=== PATIENT | male | born 1960 | race Caucasian/White ===

== ENCOUNTER 2016-10-01 00:47 | Emergency (ER) | payer OTHER ==
[~2016-10-01] VITALS: Ht 175.3 cm; Wt 79.0 kg
[2016-10-01 00:55] VITALS: BP 142/97; PULSE 79; RESP 20; O2SAT 96
--- NOTE | 2016-10-01 01:04 | ED.REPORT ---
HPI-General Illness Date of Service Oct 01, 2016 ED Provider: Medardo Huntley MD A 56 year old male with a history of hemorrhoids presents to the ED complaining of hemorrhoids. The pt reports bleeding external hemorrhoids that are causing a significant amount of pain. He has been using ointment treatments with some relief. Nursing Notes Stated Complaint: HEMORRHOIDS Chief Complaint: General Complaint Nursing Notes Reviewed: Yes Allergies: Coded Allergies: Penicillins (Verified Allergy, Severe, Edema, 10/01/16) Scheduled Hydrocortisone (Anusol-Hc) 30 Gm Cream..g. 30 GM RC BID Hydrocortisone Acetate (Anusol-Hc) 25 Mg Supp.rect 25 MG RC BID Scheduled PRN Docusate Sodium (Colace) 100 Mg Capsule 100 MG PO BID PRN PRN For Constipation General Time Seen by MD: 01:04 Chief Complaint Other (Hemorrhoids) Hx Obtained From: Patient Arrived By: Walk-in Sudden in Onset?: No Symptom Duration: Since onset Recent Healthcare: No recent hospitalization Similar Sx Previous: Yes Past Medical History Past Medical History hemorrhoids Past Surgical History none reported Smoking History Unknown if Ever Smoker Ambulatory Status Independent Review of Systems painful, bleeding hemorrhoids Full Review of Systems Respiratory: Denies: Non-productive cough, Shortness of breath Cardiovascular: Denies: Chest pain GI: Denies: Vomiting Complete sys rev & neg: except as marked. Physical Exam Vital Signs Vital Signs Date Time Temp Pulse Resp B/P Pulse Ox O2 Delivery O2 Flow Rate FiO2 10/01/16 00:55 36.8 79 20 142/97 96 Room Air Initial VS: Reviewed General/Constitutional: Awake, Alert Head / Eyes: Atraumatic, Normocephalic, PERRL, EOMI ENT: Atraumatic, Airway patent, Mucous membranes moist Neck: Atraumatic, Supple, Full range of motion Respiratory / Chest: Atraumatic, Breath sounds NL, Breath sounds = bilat, No respiratory distress Cardiovascular: Heart rate NL, Regular rhythm, Heart sounds NL Abdomen: Atraumatic, Soft, Non-tender Back: Atraumatic, Full range of motion Upper Extremities Upper Extremity / MS: Atraumatic, Full range of motion Lower Extremity / Pelvis / MS: Atraumatic, Full range of motion Skin: Color NL, No rash, Warm, Dry Rectum / Perineum: No discharge, No mass thrombosed hemorrhoid on right Neurologic: Oriented X3, Speech NL, No motor deficits, No sensory deficits Psychiatric: Affect NL, Mood NL Procedures Procedure Notes: Incision & Drainage of thrombosed hemorrhoid: 01:18 ED physician informed consent provided by pt, time-out performed, hand hygiene observed, stand sterile technique, sterile drapes applied location of hemorrhoid: right-sided lidocaine with epi 1% #15 scalpel made 0.5 cm incision radially through the middle of the thrombosed section of the hemorrhoid, few small clots were obtained deflated hemorrhoid to less than a quarter of the original volume with direct pressure medial portion of hemorrhoid thrombosed and slightly necrotic, dissected without scalpel with some dark clots expressed dressing applied, no complications, condition improved, tolerated procedure well, pt stable Re-Eval/Medical Decision Med Decision/Clinical Course 56-year-old presents with a fairly extensive thrombotic hemorrhoid on the right. A small portion of it appears actually necrotic. As noted above, risks benefits alternatives were discussed and he is agreeable to an attempt to drain this large complex hemorrhoid. He is placed in knee chest position and cleansed with chlorhexidine. Lidocaine and epinephrine anesthesia was used to anesthetize the entire right half of the perirectal area. He had good anesthesia. A single 0.5 cm incision was made radially and clot expressed and suctioned out. The hemorrhoid was reduced in size by a substantial amount, leaving approximately one quarter of its original volume.. He was discharged with Anusol HC suppositories and cream. Brief supply of Vicodin for pain relief. Colace twice a day for stool softener. Follow-up with surgical office. Time of Eval: 01:18 Re-Evaluation/Progress Note: Pt rechecked and procedure is performed without complication. Time of Eval: 02:32 Patient Status: Condition improved Re-Evaluation/Progress Note: Pt rechecked, who is feeling well. The diagnosis and plan for discharge are discussed. The pt understands and agrees with the plan. All questions are addressed at this time. Counseled Regarding: Diagnosis, Need for follow-up, When/why to return to ED Discharge & Departure Primary Impression: Thrombosed external hemorrhoid Disposition: Home Discharge Condition All VS Reviewed: Yes Condition: Stable Patient Instructions: Hemorrhoids (ED), Thrombosed Hemorrhoid (ED) Additional Instructions: Your hemorrhoids will require additional therapy with a surgeon. They can discuss the relative risks and benefits of a hemorrhoidectomy. Begin hydrocortisone suppositories and cream twice daily. Hot soak twice daily prior to cream and suppository application. Apply direct pressure with gauze if any bleeding occurs. Return if any immediate issues. Begin stool softener twice daily for the indefinite future. Vicodin sparingly if needed for pain. Referrals: [facility] Scribe Attestation Portions of this note were transcribed by Abelardo Leija. I, Dr. Huntley personally performed the history, physical exam and medical decision-making; I reviewed and confirmed the accuracy of the information in the transcribed note. Signed by: Mony Prakash, 10/01/2016 and 0244. copies to: [facility] Medardo Huntley MD Oct 01, 2016 01:04 ABELARDO LEIJA Oct 01, 2016 01:15
[2016-10-01] MEDS ORDERED: Lidocaine 2%-Epi 1:100,000 20 mL Inj ONE (01:11)
[2016-10-01] MEDS ORDERED: Lidocaine 1%/Epi 1:100,000 30 mL MDV ONE (01:11)
[2016-10-01] MEDS ORDERED: HYDR30CR76 RC (02:19)
[2016-10-01] MEDS ORDERED: DOCU-41 PO (02:19)
[2016-10-01] MEDS ORDERED: HYDR25SU31 RC (02:19)
[2016-10-01] MEDS ORDERED: _HYDROcodone/APAP 5-325 mg Tablet PO PRN (02:25)
== END 2016-10-01 02:40 | disposition home or self-care (01) ==
LOC: EDSEX 00:47 → SED 01:00
DX: K64.5 Perianal venous thrombosis (principal); Z88.0 Allergy status to penicillin